=== PATIENT | male | born 1955 | race Caucasian/White ===

== ENCOUNTER → 2024-10-19 | Day surgery (SDC) | payer MEDICARE, OTHER ==
[2024-10-17 09:27] LABS: BASOPHILS # (AUTO) 0.1 (0.0-0.1); BASOPHILS % 0.7 % (0.0-1.0); EOSINOPHILS # (AUTO) 0.2 (0.0-0.4); EOSINOPHILS % 3.1 % (0.0-6.0); HEMATOCRIT 43.5 % (38.2-49.6); HEMOGLOBIN 14.9 g/dL (14.0-18.0); LYMPHOCYTES # (AUTO) 1.4 (1.0-3.2); LYMPHOCYTES % 18.8 % (18.0-39.1); MEAN CORPUSCULAR HEMOGLOBIN 31.4 pg (28-32); MEAN CORPUSCULAR HGB CONC 34.3 g/dL (31-35); MEAN CORPUSCULAR VOLUME 91.6 fL (81-99); MONOCYTES # (AUTO) 0.6 (0.2-0.8); MONOCYTES % 7.6 % (4.4-11.3); NEUTROPHILS # (AUTO) 5.2 (2.1-6.9); NEUTROPHILS % 69.5 % (38.7-80.0); PLATELET COUNT 174 x10e3/uL (140-360); RED BLOOD COUNT 4.75 x10e6/uL (4.3-5.7); RED CELL DISTRIBUTION WIDTH 13.2 % (11.7-14.4); WHITE BLOOD COUNT 7.51 x10e3/uL (4.8-10.8)
[~2024-10-19] MED LIST: AMIODARONE PO; AMLO; AMLODIPINE-BEN1 EAC3; AMLODIPINE-BEN1 EAC3 PO; ASPIRIN325 MG PO; ATORVASTATIN CA40 MG PO; CENTRUM MEN 501 EACH; GLIMEPIRIDE2 MG PO; IRON; JARDIANCE25 MG; LIDOCAINE HCL 2% LOCAL INJ 5 ML SDV VIAL INJ ONE; LOVASTATIN40 MG; LOVASTATIN40 MG PO; METFORMIN HCL850 MG PO; PROPOFOL IV EMULSION 10 MG/ML 20 ML VIAL ONE; TAMSULOSIN HCL0.4 MG PO; VITRON-C TABLE1 EACH PO; [UNRECOGNIZED DRUG - OTHER] PO
[2024-10-19] MEDS: LACTATED RINGER'S 1,000 ML ONE (06:02)
[2024-10-19 07:50] VITALS: TEMP 98
[2024-10-19 08:20] VITALS: BP 132/71; PULSE 58; RESP 16; O2SAT 97
== END | disposition home or self-care (01) ==
LOC: OR 05:41
PROVIDERS: ATTEND Internal Medicine Gastroenterology
DX: Z09 Encounter for follow-up examination after completed treatment for conditions other than malignant neoplasm (principal); Z86.0100 Personal history of colon polyps, unspecified; K57.30 Diverticulosis of large intestine without perforation or abscess without bleeding; K64.1 Second degree hemorrhoids; E11.9 Type 2 diabetes mellitus without complications; I10 Essential (primary) hypertension; E78.5 Hyperlipidemia, unspecified; Z01.810 Encounter for preprocedural cardiovascular examination; Z01.812 Encounter for preprocedural laboratory examination; Z79.82 Long term (current) use of aspirin; Z79.84 Long term (current) use of oral hypoglycemic drugs; Z68.29 Body mass index [BMI] 29.0-29.9, adult; Z80.0 Family history of malignant neoplasm of digestive organs
CPT/HCPCS: 36415; 45378; 85025; 93005; J2003; J2704; J7121